=== PATIENT | male | born 1950 | race American Indian/Alaskan Native ===

== ENCOUNTER 2016-10-31 10:45 | Inpatient (IN) | payer BC ==
[2016-09-28 12:07] VITALS: BMI 29.0
--- NOTE | 2016-09-28 12:37 | PAT Medication Instructions ---
Service Date Sep 28, 2016. Current Home Medication List Amlodipine/Benazepril (Lotrel 5MG/10MG), 1 CAP PO DAILY Gabapentin (Neurontin), 300 MG PO QAM Naproxen (Aleve), 220 MG PO QAM Propranolol Hcl (Propranolol Hcl Er), 1 TAB PO DAILY Medication Instructions For Your Scheduled Surgery - Hold the following medications the morning of surgery: Naproxen (Aleve), 220 MG PO QAM (otherwise okay to continue per surgeon) Amlodipine/Benazepril (Lotrel 5MG/10MG), 1 CAP PO DAILY - Take the following medications the morning of surgery with a sip of water: Gabapentin (Neurontin), 300 MG PO QAM Propranolol Hcl (Propranolol Hcl Er), 1 TAB PO DAILY If you have any questions please call us at [phone] or [phone] or [phone]
[2016-09-28 13:16] LABS: BASO % 0.4 %; BASO ABS # 0.02 K/uL (0-0.2); COMPLETE YES; HEMATOCRIT 43.9 % (42-52); LYMPH % 28.8 %; LYMPH ABS # 1.59 K/uL (1.2-3.4); MEAN CELL VOLUME 84.6 fL (80-100); MEAN CORPUSCULAR HEMOGLOBIN 30.3 pg (25-34); MEAN CORPUSCULAR HGB CONC 35.8 g/dl (32-36); MEAN PLATELET VOLUME 11.7 fL (7.4-10.4); MONO % 9.2 %; NEUT % 59.6 %; PLATELET COUNT 160 K/uL (130-400); RED BLOOD COUNT 5.19 M/uL (4.7-6.1); WHITE BLOOD COUNT 5.53 K/uL (4.8-10.8)
[2016-09-28 13:34] LABS: BUN/CREATININE RATIO 19.8 (10-20); CALCIUM 8.8 mg/dl (8.5-10.1); CREATININE 0.89 mg/dl (0.60-1.40); POTASSIUM 3.9 mmol/L (3.5-5.1)
[2016-09-28 13:38] LABS: INR 1.1 (0.9-1.1); PROTHROMBIN TIME (PATIENT) 11.3 SECONDS (9.0-12.0)
--- NOTE | 2016-09-28 13:40 | DIAGNOSTIC IMAGING REPORT ---
CHEST PREADMISSION(PA/LAT) CLINICAL HISTORY: Preoperative chest COMPARISON STUDY: No previous studies for comparison. FINDINGS: The heart is the upper limits of normal in size. There is mild elevation right hemidiaphragm. There is mild right basilar atelectasis. There are few linear opacities the left lung base, also likely atelectatic.[ There is no failure. There are no pleural effusions. IMPRESSION: Mild elevation of the right hemidiaphragm. No evidence of failure. No evidence of focal pulmonary consolidation Electronically signed by: Kvng Acevedo M.D. 09/28/2016 1:38 PM Dictated Date/Time: 09/28/2016 1:38 PM
[2016-09-28 13:42] LABS: ESTIMATED AVERAGE GLUCOSE 117 mg/dl; HA1C FLAG Normal (Normal)
[2016-09-28 13:42] LABS: URINE APPEARANCE CLEAR (CLEAR); URINE BILIRUBIN NEG (NEG); URINE COLOR YELLOW; URINE NITRITE NEG (NEG); URINE PH 6.5 (4.5-7.5); UROBILINOGEN NEG (NEG); ZZUR CULT IF INDIC CLEAN CATCH NO
[2016-09-28 13:57] LABS: MANUAL MICROSCOPIC REQUIRED? NO; REVIEW REQ? NO
--- NOTE | 2016-10-30 20:19 | HISTORY & PHYSICAL EXAMINATION ---
DATE OF ADMISSION: 10/31/2016 CHIEF COMPLAINT: Chronic right knee pain. HISTORY OF PRESENT ILLNESS: This is a 66-year-old male patient of Dr. Elder, complaining of chronic right knee pain, longstanding, now progressively getting worse. The patient has been diagnosed with end-stage osteoarthritis per clinical and radiographic exams. The patient has failed conservative treatment including anti-inflammatories, intraarticular injections, physical therapy, and the use of a brace. The patient has increased pain with weightbearing activities and his pain does interfere with his activities of daily living. PAST MEDICAL HISTORY: Hypertension, upper back problems. SOCIAL HISTORY: Nonsmoker, nondrinker. SURGICAL HISTORY: Right and left knee surgery in the past. FAMILY HISTORY: Noncontributory. REVIEW OF SYSTEMS: The patient complains of chronic right knee pain. Otherwise, denies any shortness of breath, chest pain, nausea, vomiting, or any other joint complaints. MEDICATIONS: Include gabapentin 300 mg daily, propranolol 120 mg daily, amlodipine 5 mg/benazepril 10 mg daily. ALLERGIES: No known drug allergies. PHYSICAL EXAMINATION: GENERAL: Well-developed, well-nourished 66-year-old male in no acute distress. He is alert and oriented x3 and pleasant. HEENT: Normocephalic, atraumatic. Extraocular motions are intact. Pupils are equal and reactive to light. HEART: Regular rate and rhythm, no murmurs appreciated. LUNGS: Clear. ABDOMEN: Soft and nontender, bowel sounds are present. EXTREMITIES: Right knee reveals limited range of motion of 0-120 degrees. He has lateral joint line tenderness. He is stable with crepitation with passive range of motion, has 5/5 strength. NEUROLOGIC: Neurovascularly, he is intact in his right lower extremity. DIAGNOSES: Right knee end-stage osteoarthritis, hypertension, and back problems. PLAN: The patient was advised of his diagnosis. Indications, risks, benefits, and postop course have all been reviewed. The patient wishes to proceed with right total knee arthroplasty. Necessary consent forms, preoperative testing and clearances will be obtained.
[~2016-10-31] VITALS: Ht 172.7 cm; Wt 87.0 kg
[2016-10-31] VITALS (7 sets, daily range): BP systolic 93–145; BP diastolic 83–101; PULSE 67–84; TEMP 36.4–37.1; O2SAT 93–98; Ht 172.7 cm; Wt 87.0 kg
[~2016-10-31 10:45] MED LIST: ACETAMINOPHEN 500 MG TAB PO SCH; ATROPINE SULFATE 0.1 MG/ML 5ML SYR IV PRN; BUPIVACAINE 0.5 % 5 MG/1 ML PF 10ML VIAL ONE; CEFAZOLIN 2000 MG/60 ML D5W 60 ML IV SCH; CeleBREX 200 MG CAP PO SCH; DEXAMETHASONE 4 MG TAB PO SCH; EpHEDrine SULFATE INJ 50 MG/ML AMP IV PRN; FAMOTIDINE 20 MG TAB PO SCH; FENTANYL CITRATE INJ 50 MCG/1 ML 2 ML VIAL IV PRN; GABA-113 PO; GABAPENTIN 300 MG CAP PO SCH; LACTATED RINGER'S 1000ML 1,000 ML IV SCH; LACTATED RINGER'S 1000ML 500 ML IV ONE; LACTATED RINGER'S 1000ML IV SCH; LTR510 PO; METOCLOPRAMIDE HCL 10 MG TAB PO SCH; NAPR1TAB9 PO; ONDANSETRON INJ 2 MG/ML 2 ML VIAL IV PRN; PROP120C PO; ROPIVACAINE 5MG/ML 30 ML 150 MG, BUPIVACAINE/EPINEPHR 0.5% MPF 30 ML, KETOROLAC TROMETH... INFIL SCH; TRANEXAMIC ACID INJ 1,000 MG in SODIUM CHLORIDE 0.9% 100ML 100 ML IV SCH
[2016-10-31] MEDS ORDERED: FENTANYL CITRATE INJ 50 MCG/1 ML 2 ML VIAL ONE (10:49)
[2016-10-31] MEDS ORDERED: MIDAZOLAM HCL 1 MG/ML 2ML VIAL ONE ×2 (10:49)
--- NOTE | 2016-10-31 11:40 | History & Physical Bridge Note ---
H&P Re-Evaluation Bridge Note: I have examined the patient, reviewed the History & Physical and in the interval since the performance of the History & Physical I have noted the following changes of clinical significance: No changes noted
[2016-10-31] MEDS ORDERED: POVIDONE-IODINE OP SOLN 30 ML BTL ONE (12:12)
[2016-10-31] MEDS ORDERED: BACITRACIN 50000 UNIT VIAL ONE (12:12)
[2016-10-31] MEDS ORDERED: ORTHO JOINT ANESTHETIC ONE (12:12)
[2016-10-31] MEDS ORDERED: PROPOFOL IV EMULSION 10 MG/ML 20 ML VIAL IV ONE (13:38)
--- NOTE | 2016-10-31 14:44 | [facility] Operative Report ---
Operative Report Operative Date Oct 31, 2016. Pre-Operative Diagnosis Right Knee Degenerative Joint Disease Post-Operative Diagnosis same Procedure(s) Performed right total knee replacement Surgeon Dr. Dominique Underliner Surgeon(s) Rubio Mcmahon PA-C Estimated Blood Loss 5 ml Findings valgus knee grade 4 bone loss lateral femoral condyle Specimens A. Right Knee Bone and Tissue Drains 2 hemovac Anesthesia spinal orthomix regional block Complication(s) None Disposition Recovery Room / PACU Indications end stage djd I attest to the content of the Intraoperative Record and any orders documented therein. Any exceptions are noted below.
[2016-10-31] MEDS ORDERED: MoRPHine SULFATE 2 MG/ML CARP IV PRN (15:00)
[2016-10-31] MEDS ORDERED: SOD PHOSPHATE/SOD BIPHOSPHATE ENEMA 132 ML BTL PR PRN (15:00)
[2016-10-31] MEDS ORDERED: OXYCODONE HCL IR 5 MG TAB (IMMEDIATE RELEASE) PO PRN (15:00)
[2016-10-31] MEDS ORDERED: TRAMADOL HCL 50 MG TAB PO PRN (15:00)
[2016-10-31] MEDS ORDERED: ZOLPIDEM TARTRATE 5 MG TAB PO PRN (15:00)
[2016-10-31] MEDS ORDERED: ONDANSETRON INJ 2 MG/ML 2 ML VIAL IV PRN (15:00)
[2016-10-31] MEDS ORDERED: MAGNESIUM HYDROXIDE SUSP 30 ML UDC PO PRN (15:00)
[2016-10-31] MEDS ORDERED: BISACODYL 10 MG SUPP PR PRN (15:00)
[2016-10-31] MEDS ORDERED: MoRPHine SULFATE 4 MG/ML 1 ML CARP\\VIAL IV PRN (15:15)
--- NOTE | 2016-10-31 15:19 | DIAGNOSTIC IMAGING REPORT ---
TWO VIEWS RIGHT KNEE CLINICAL HISTORY: Postoperative examination. FINDINGS: AP and crosstable lateral portable views of the right knee are obtained. A right knee arthroplasty is in near anatomic alignment. There has been undersurface remodeling of the patella. No acute fracture is seen. There are expected postoperative changes around the knee including skin clips, a surgical drain, soft tissue edema, and subcutaneous gas. IMPRESSION: Expected postoperative changes status post right knee arthroplasty. No acute fracture is seen. Electronically signed by: Rolly Jeffries M.D. 10/31/2016 3:16 PM Dictated Date/Time: 10/31/2016 3:16 PM
--- NOTE | 2016-10-31 15:40 | Anesthesiology Progress Note ---
Anesthesia Post Op Note Date & Time Oct 31, 2016 at 15:39 Vital Signs Pain Intensity: 0 Vital Signs Past 12 Hours Date Time Temp Pulse Resp B/P Pulse Ox O2 Delivery O2 Flow Rate FiO2 10/31/16 15:37 82 16 10/31/16 15:37 82 16 100 10/31/16 15:36 103/79 10/31/16 15:32 79 16 10/31/16 15:32 78 16 100 10/31/16 15:31 119/80 10/31/16 15:28 36.5 10/31/16 15:27 84 16 10/31/16 15:27 88 16 97 10/31/16 15:26 82 13 99 10/31/16 15:26 83 13 10/31/16 15:25 121/82 10/31/16 15:21 82 13 10/31/16 15:21 82 13 99 10/31/16 15:20 118/82 10/31/16 15:16 85 20 100 10/31/16 15:16 86 20 10/31/16 15:15 84 17 117/93 100 10/31/16 15:15 86 17 10/31/16 15:10 85 13 10/31/16 15:10 97 13 129/80 100 10/31/16 15:05 83 17 10/31/16 15:05 83 17 116/85 100 10/31/16 15:01 113/81 10/31/16 15:00 86 16 10/31/16 15:00 87 16 96 10/31/16 14:55 37.2 78 16 100/77 100 Nasal Cannula 2 10/31/16 14:55 86 18 10/31/16 14:55 110 18 100/77 98 10/31/16 11:14 36.9 67 18 145/101 96 Room Air Notes Mental Status: alert / awake / arousable, participated in evaluation Pt Amnestic to Procedure: Yes Nausea / Vomiting: adequately controlled Pain: adequately controlled Airway Patency, RR, SpO2: stable & adequate BP & HR: stable & adequate Hydration State: stable & adequate Neuraxial Anesthesia: was administered, sensory block is resolving Anesthetic Complications: no major complications apparent
--- NOTE | 2016-10-31 16:49 | OPERATIVE REPORT ---
DATE OF OPERATION: 10/31/2016 INDICATION FOR PROCEDURE: The patient is a 66-year-old male with progressive osteoarthritis in his right knee. He has had long-term osteoarthritis and he is [id number] in his lateral compartment with some bone loss and now presents for knee replacement. PREOPERATIVE DIAGNOSIS: End-stage osteoarthritis, right knee. POSTOPERATIVE DIAGNOSIS: Same. PROCEDURE: Right total knee arthroplasty. SURGEON: Dr. Dominique. CHUCK SPLITTER: Rubio Mcmahon PA-C. ANESTHESIA: Spinal sedation, regional block and Orthomix. OPERATIVE PROCEDURE: The patient was taken to the operating room and anesthetized under anesthesia as dictated. She was placed supine on the operating room table. Pneumatic tourniquet was placed on his right upper thigh. Exam demonstrated a thin leg, about 5-10 degree flexion contracture, further flexion to 100 degrees. He has a valgus knee [id number] crepitation. No instability. His right lower extremity was prepped and draped with ChloraPrep. The leg was elevated, exsanguinated with Esmarch bandage. Pneumatic tourniquet was raised to 300 mmHg. Anterior incision made across the right knee. Skin incised sharply. Subcutaneous flaps were elevated. The patient had some prepatellar bursitis that was resected. The incision was made through medial retinaculum and extended up in the mid of the quadriceps tendon extending down to the medial tibial tubercle. Intra-articular findings demonstrated that he had bone loss in the lateral femoral condyle, eburnated bone in the lateral compartment and chronic lateral meniscus tear, intact ACL and intact medial meniscus. He had large patellar osteophytes with a very large superior patellar osteophyte extending up into the quad tendon. I used the Stapleton \T\ Nephew Journey 2.0, total knee arthroplasty system using Visionaire MRI templating. Femur sized for a 5, tibia for 6 in the preoperative evaluation. The knee joint was exposed by excising the infrapatellar fat pad, excised the meniscal remnants, excising the cruciate ligaments and releasing the lateral synovial bands, and excising the fat pad over the anterior femur for placement of the component in that area. The femur was exposed. The custom femoral cutting block was pinned in position, the distal femoral cut was made, and then we went ahead and extended the knee and addressed the patella first. A did a subperiosteal peel release around the patella, excised the very large osteophytes with a rongeur. Then we measured the width of the patella, patella width was reproduced using a freehand cut technique and a 35 patella component. The drill holes for the pegs were placed and the excess lateral facet was beveled off to prevent any impingement. Then we were able to get better retraction of soft tissues to expose the femur more clearly. Then we placed the 5-1 cutting block for the size 5 femur. The anterior, posterior and chamfer cuts were made. Then the tibia was subluxed and the custom tibial cutting block was placed and the proximal tibial cut was made. We used the lamina processing rep to assess ligamentous balance and we did releases posterolateral, anterolateral some of the IT band to balance the ligaments which were balanced in extension and flexion well. At this time, the tibia was reexposed. We excised some osteophytes and felt that 5 tibial component would better fit the patient. The 5 tibial trial was externally rotated in line with the tibial tubercle, pinned in position and then the punch for the stem was used. Then, the 5 femoral trial was inserted, centered, and the notch cutting devices were used and the collet was placed and 12 poly insert gave balanced ligaments through flexion, extension through full range of motion, patella tracked centrally. The trial components were removed. Orthomix was injected per protocol. The knee was copiously irrigated with pulsatile lavage antibiotic solution with bacitracin. Then, the final components were cemented with Simplex cement. Final components were the 5 Oxinium posterior stabilized Stapleton \T\ Nephew Journey 2.0 right femur, the 5 tibial primary baseplate, the 12 poly posterior stabilized insert and 35 patella. The knee was kept in extension while the cement cured, then we did a Betadine soak per protocol at this time. Then the knee was then copiously irrigated with pulsatile lavage antibiotic solution and bacitracin. Two drains were brought out laterally and connected to a Hemovac. The quadriceps tendon and medial retinaculum were closed with interrupted [id number] #1 Vicryl sutures. Subcutaneous tissue closed with interrupted 2-0 Vicryl and skin was closed with mary. A sterile dressing applied. The patient tolerated the procedure well. Rubio Mcmahon PA-C was my assistant program manager. He functioned as assistant program manager for the entire procedure. He assisted in patient positioning, prepping, draping, leg positioning, soft tissue retraction, instrument management during the procedure and he performed the fascial, subcutaneous and skin closure and will participate in the postoperative care of the patient. I attest to the content of the Intraoperative Record and any orders documented therein. Any exceptio ns are noted below.
[2016-10-31] MEDS: D5W AND 1/2NSS + 20MEQ KCL 1,000 ML IV SCH (17:34)
--- NOTE | 2016-10-31 19:47 | Medical Consult ---
Consultation Date of Consultation: Oct 31, 2016. Attending Physician: Flaco Dominique M.D. Reason for Consultation: Medical Management History of Present Illness 66 y/o M s/p R TKA earlier today. He is doing well post-op. No pain at all at this point. Ate without issue. No chest pain or SOB. Pt denies fever, abd pain, n/v/c/d, LE pain or swelling. ROS as noted above, otherwise neg. Past Medical/Surgical History HTN L UE tremor Social History Smoking Status: Never Smoker Alcohol Use: none Allergies Coded Allergies: No Known Allergies (Unverified , 10/31/16) Current Inpatient Medications Current Inpatient Medications Medications (Trade) Dose Ordered Sig/Priyank Route Start Time Stop Time Status Last Admin Dose Admin Gabapentin (Neurontin Cap) 300 mg QAM PO 11/01/16 09:00 12/01/16 08:59 Amlodipine Besylate (Norvasc Tab) 5 mg QAM PO 11/01/16 09:00 12/01/16 08:59 Propranolol HCl 120 mg 120 mg DAILY PO 11/01/16 09:00 12/01/16 08:59 Potassium Chloride/Dextrose/ Sod Cl 1,000 ml @ 100 mls/hr Q10H IV 10/31/16 17:00 11/01/16 16:59 10/31/16 17:34 100 MLS/HR Cefazolin Sodium/ Dextrose (Ancef Iv/D5 50ml) 60 ml @ 100 mls/hr Q8 IV 10/31/16 22:00 11/01/16 06:35 Celecoxib (CeleBREX CAP) 200 mg BID PO 10/31/16 21:00 11/30/16 20:59 Oxycodone HCl (Roxicodone Immediate Rel Tab) 1 TABLET FOR PAIN RATING... Q4H PRN PO 10/31/16 15:00 11/14/16 14:59 Oxycodone HCl (Oxycontin Tab) 10 mg Q12 PO 10/31/16 21:00 11/14/16 20:59 Morphine Sulfate (MoRPHine SULFATE INJ) 2 mg Q2H PRN IV 10/31/16 15:00 11/14/16 14:59 Acetaminophen (Tylenol Tab) 1,000 mg Q8 PO 10/31/16 22:00 11/30/16 21:59 Magnesium Hydroxide (Milk Of Magnesia Susp) 30 ml Q6H PRN PO 10/31/16 15:00 11/30/16 14:59 Bisacodyl (Dulcolax Supp) 10 mg DAILY PRN SD 10/31/16 15:00 11/30/16 14:59 Sodium Biphosphate/ Sodium Phosphate (Fleet Enema) 132 ml DAILY PRN SD 10/31/16 15:00 11/30/16 14:59 Docusate Sodium (coLACE CAP) 100 mg BID PO 10/31/16 21:00 11/30/16 20:59 Diphenhydramine HCl (Benadryl Cap) 25 mg Q8H PRN PO 10/31/16 15:00 11/30/16 14:59 Zolpidem Tartrate (Ambien Tab) 5 mg HSZ PRN PO 10/31/16 15:00 11/30/16 14:59 Multivitamins (Multivitamin Tab) 1 tab QAM PO 11/01/16 09:00 12/01/16 08:59 Ondansetron HCl (Zofran Inj) 4 mg Q6H PRN IV 10/31/16 15:00 11/30/16 14:59 Pantoprazole Sodium (Protonix Tab) 40 mg QAM PO 11/01/16 09:00 12/01/16 08:59 Tramadol HCl (Ultram Tab) 1 tablet for pain rating... Q4H PRN PO 10/31/16 15:00 11/30/16 14:59 Aspirin (Ecotrin Tab) 81 mg BID PO 10/31/16 21:00 11/30/16 20:59 Morphine Sulfate (MoRPHine SULFATE INJ) 4 mg Q2H PRN IV 10/31/16 15:15 11/14/16 15:14 Benazepril HCl (Lotensin Tab) 10 mg QAM PO 11/01/16 09:00 12/01/16 08:59 Physical Exam Date Time Temp Pulse Resp B/P Pulse Ox O2 Delivery O2 Flow Rate FiO2 10/31/16 17:25 36.4 78 19 93/ 97 Nasal Cannula 2.0 10/31/16 16:52 36.5 77 18 144/100 97 Nasal Cannula 2.0 10/31/16 16:06 80 15 10/31/16 16:06 79 15 116/87 98 10/31/16 16:01 87 16 10/31/16 16:01 88 16 98 10/31/16 16:00 121/84 10/31/16 15:56 76 16 98 10/31/16 15:56 78 16 10/31/16 15:55 118/79 10/31/16 15:51 79 13 98 10/31/16 15:51 79 13 10/31/16 15:50 121/81 10/31/16 15:48 86 20 97 10/31/16 15:48 87 20 10/31/16 15:45 133/82 10/31/16 15:43 81 20 99 10/31/16 15:43 81 20 10/31/16 15:40 120/93 10/31/16 15:38 86 15 99 10/31/16 15:38 85 15 10/31/16 15:37 82 16 10/31/16 15:37 82 16 100 10/31/16 15:36 103/79 10/31/16 15:32 79 16 10/31/16 15:32 78 16 100 10/31/16 15:31 119/80 10/31/16 15:28 36.5 10/31/16 15:27 84 16 10/31/16 15:27 88 16 97 10/31/16 15:26 82 13 99 10/31/16 15:26 83 13 10/31/16 15:25 121/82 10/31/16 15:21 82 13 10/31/16 15:21 82 13 99 10/31/16 15:20 118/82 10/31/16 15:16 85 20 100 10/31/16 15:16 86 20 10/31/16 15:15 84 17 117/93 100 10/31/16 15:15 86 17 10/31/16 15:10 85 13 10/31/16 15:10 97 13 129/80 100 10/31/16 15:05 83 17 10/31/16 15:05 83 17 116/85 100 10/31/16 15:01 113/81 10/31/16 15:00 86 16 10/31/16 15:00 87 16 96 10/31/16 14:55 37.2 78 16 100/77 100 Nasal Cannula 2 10/31/16 14:55 86 18 10/31/16 14:55 110 18 100/77 98 10/31/16 11:14 36.9 67 18 145/101 96 Room Air General Appearance: WD/WN, no apparent distress Respiratory/Chest: normal breath sounds, no respiratory distress Cardiovascular: regular rate, rhythm, no edema Abdomen/GI: non tender, soft Extremities/Musculoskelatal: no calf tenderness, no pedal edema Neurologic/Psych: alert, normal mood/affect, oriented x 3 Skin: normal color, warm/dry Laboratory Results 66 y/o M who was admitted on 10/31 s/p R TKA. R TKA: as per ortho HTN: stable, continue home meds LUE tremor: continue home meds Elevated A1c: mild at 5.7, pt states no prior hx of issues Advised f/u with PCP for recheck in the next 3-6 months
[2016-10-31] MEDS: OXYCODONE HCL 10 MG TABCR (OXYCONTIN) PO SCH (21:01)
[2016-10-31] MEDS: ASPIRIN 81 MG ECTAB PO SCH (21:02)
[2016-10-31] MEDS: DOCUSATE SODIUM 100 MG CAP PO SCH (21:02)
[2016-10-31] MEDS: CeleBREX 200 MG CAP PO SCH (21:02)
[2016-10-31] MEDS: CEFAZOLIN IV 2,000 MG in DEXTROSE 5% 50ML 50 ML IV SCH (21:44)
[2016-10-31] MEDS: ACETAMINOPHEN 500 MG TAB PO SCH (21:45)
[2016-11-01 03:15] VITALS: BP 156/84; PULSE 76; TEMP 36.4; O2SAT 95
[2016-11-01] MEDS: D5W AND 1/2NSS + 20MEQ KCL 1,000 ML IV SCH ×2 (04:00→13:00)
[2016-11-01] MEDS: ACETAMINOPHEN 500 MG TAB PO SCH ×3 (05:20→21:52)
[2016-11-01] MEDS: CEFAZOLIN IV 2,000 MG in DEXTROSE 5% 50ML 50 ML IV SCH (05:20)
[2016-11-01 06:26] LABS: HEMATOCRIT 40.2 % (42-52); MEAN CELL VOLUME 84.3 fL (80-100); MEAN CORPUSCULAR HEMOGLOBIN 29.6 pg (25-34); MEAN CORPUSCULAR HGB CONC 35.1 g/dl (32-36); MEAN PLATELET VOLUME 11.6 fL (7.4-10.4); PLATELET COUNT 170 K/uL (130-400); RED BLOOD COUNT 4.77 M/uL (4.7-6.1); WHITE BLOOD COUNT 10.36 K/uL (4.8-10.8)
[2016-11-01 06:54] LABS: BUN/CREATININE RATIO 13.3 (10-20); CALCIUM 8.6 mg/dl (8.5-10.1); CREATININE 1.1 mg/dl (0.60-1.40); POTASSIUM 4.1 mmol/L (3.5-5.1)
--- NOTE | 2016-11-01 07:37 | Anesthesiology Progress Note ---
Anesthesia Post Op Note Date & Time Nov 01, 2016 at 07:36 Vital Signs Pain Intensity: 0.0 Vital Signs Past 12 Hours Date Time Temp Pulse Resp B/P Pulse Ox O2 Delivery O2 Flow Rate FiO2 11/01/16 07:10 Room Air 11/01/16 03:15 36.4 76 16 156/84 95 Room Air 10/31/16 23:55 Room Air 10/31/16 23:00 36.4 81 18 138/91 95 Room Air Notes Mental Status: alert / awake / arousable, participated in evaluation Pt Amnestic to Procedure: Yes Nausea / Vomiting: adequately controlled Pain: adequately controlled Airway Patency, RR, SpO2: stable & adequate BP & HR: stable & adequate Hydration State: stable & adequate Neuraxial Anesthesia: was administered, sensory block resolved Anesthetic Complications: no major complications apparent
[2016-11-01 08:14] VITALS: BP 159/96; PULSE 73; TEMP 36.4; O2SAT 97
--- NOTE | 2016-11-01 08:26 | Orthopedic Progress Note ---
Orthopedic Progress Note Date of Service Nov 01, 2016. Subjective Post OP Day: 1 Reports: feeling well, pain controlled w PO medications, Denies: SOB, calf pain , chest pain, complaints, light headedness, nausea / vomiting Objective calves soft nontender, N/V intact, capillary refill less than 2 sec., dressing C /D/I, A&O x3, toes mobile Date Time Temp Pulse Resp B/P Pulse Ox O2 Delivery O2 Flow Rate FiO2 11/01/16 08:14 36.4 73 16 159/96 97 Room Air 11/01/16 07:10 Room Air 11/01/16 03:15 36.4 76 16 156/84 95 Room Air 10/31/16 23:55 Room Air 10/31/16 23:00 36.4 81 18 138/91 95 Room Air 10/31/16 19:20 36.4 83 18 129/85 94 Room Air 10/31/16 18:20 36.4 80 18 138/95 98 Nasal Cannula 2.0 10/31/16 17:25 36.4 78 19 93/ 97 Nasal Cannula 2.0 10/31/16 16:52 36.5 77 18 144/100 97 Nasal Cannula 2.0 10/31/16 16:30 93 Nasal Cannula 2.0 10/31/16 16:30 93 Nasal Cannula 2.0 10/31/16 16:30 37.1 84 18 116/83 93 Nasal Cannula 2.0 10/31/16 16:06 80 15 10/31/16 16:06 79 15 116/87 98 10/31/16 16:01 87 16 10/31/16 16:01 88 16 98 10/31/16 16:00 121/84 10/31/16 15:56 76 16 98 10/31/16 15:56 78 16 10/31/16 15:55 118/79 10/31/16 15:51 79 13 98 10/31/16 15:51 79 13 10/31/16 15:50 121/81 10/31/16 15:48 86 20 97 10/31/16 15:48 87 20 10/31/16 15:45 133/82 10/31/16 15:43 81 20 99 10/31/16 15:43 81 20 10/31/16 15:40 120/93 10/31/16 15:38 86 15 99 10/31/16 15:38 85 15 10/31/16 15:37 82 16 10/31/16 15:37 82 16 100 10/31/16 15:36 103/79 10/31/16 15:32 79 16 10/31/16 15:32 78 16 100 10/31/16 15:31 119/80 10/31/16 15:28 36.5 10/31/16 15:27 84 16 10/31/16 15:27 88 16 97 10/31/16 15:26 82 13 99 10/31/16 15:26 83 13 10/31/16 15:25 121/82 10/31/16 15:21 82 13 10/31/16 15:21 82 13 99 10/31/16 15:20 118/82 10/31/16 15:16 85 20 100 10/31/16 15:16 86 20 10/31/16 15:15 84 17 117/93 100 10/31/16 15:15 86 17 10/31/16 15:10 85 13 10/31/16 15:10 97 13 129/80 100 10/31/16 15:05 83 17 10/31/16 15:05 83 17 116/85 100 10/31/16 15:01 113/81 10/31/16 15:00 86 16 10/31/16 15:00 87 16 96 10/31/16 14:55 37.2 78 16 100/77 100 Nasal Cannula 2 10/31/16 14:55 86 18 10/31/16 14:55 110 18 100/77 98 10/31/16 11:14 36.9 67 18 145/101 96 Room Air Laboratory Results 24 Hours: Test 11/01/16 05:47 Hematocrit 40.2 % Hemoglobin 14.1 g/dL Assessment & Plan Assessment: POD #1, Right TKA Plan: PT/ OT DVT proph- ASA D/C planning- Home w [facility] medicine input Inhouse Planning Pain Management: Celebrex, Oxycontin, Morphine, PO Tylenol, Oxy IR DVT Prophylaxis: TEDs, SCDs, ASA Discharge Planning Discharge Planning: home with home health Pain Management: Celebrex, Oxycontin, PO Tylenol, Oxy IR DVT Prophylaxis: TEDs, ASA Therapy: Physical Therapy, Occupational Therapy
[2016-11-01] MEDS: GABAPENTIN 300 MG CAP PO SCH (08:36)
[2016-11-01] MEDS: OXYCODONE HCL 10 MG TABCR (OXYCONTIN) PO SCH ×2 (08:36→20:50)
[2016-11-01] MEDS: MULTIVITAMIN TAB PO SCH (08:36)
[2016-11-01] MEDS: BENAZEPRIL HCL 10 MG TAB PO SCH (08:37)
[2016-11-01] MEDS: AMLODIPINE BESYLATE 5 MG TAB PO SCH (08:37)
[2016-11-01] MEDS: PROPRANOLOL HCL 60 MG LA CAP PO SCH (08:38)
[2016-11-01] MEDS: CeleBREX 200 MG CAP PO SCH ×2 (08:39→20:52)
[2016-11-01] MEDS: PANTOprazole SOD 40 MG TAB PO SCH (08:39)
[2016-11-01] MEDS: ASPIRIN 81 MG ECTAB PO SCH ×2 (08:39→20:51)
[2016-11-01] MEDS: DOCUSATE SODIUM 100 MG CAP PO SCH ×2 (08:39→20:51)
--- NOTE | 2016-11-01 09:58 | Progress Note ---
Subjective Date of Service: Nov 01, 2016. Subjective Pt evaluation today including: conversation w/ patient, physical exam, review of studies, review of inpatient medication list Feeling well, not requiring any pain medications. AMbulating without pain/gait dysfunction. No chest pain , no sob. Good appetite. No urinary or abd symptoms. +BM this morning Review of Systems All Other Systems: Reviewed and Negative Medications Acetaminophen (Tylenol Tab) 1,000 mg Q8 PO Last administered on 11/01/16 05:20 ; Admin Dose 1,000 MG; Start 10/31/16 at 22:00; Stop 11/30/16 at 21:59 Amlodipine Besylate (Norvasc Tab) 5 mg QAM PO Last administered on 11/01/16 08: 37; Admin Dose 5 MG; Start 11/01/16 at 09:00; Stop 12/01/16 at 08:59 Aspirin (Ecotrin Tab) 81 mg BID PO Last administered on 11/01/16 08:39; Admin Dose 81 MG; Start 10/31/16 at 21:00; Stop 11/30/16 at 20:59 Benazepril HCl (Lotensin Tab) 10 mg QAM PO Last administered on 11/01/16 08:37 ; Admin Dose 10 MG; Start 11/01/16 at 09:00; Stop 12/01/16 at 08:59 Bisacodyl (Dulcolax Supp) 10 mg DAILY PRN MD; Start 10/31/16 at 15:00; Stop at 14:59 Celecoxib (CeleBREX CAP) 200 mg BID PO Last administered on 11/01/16 08:39; Admin Dose 200 MG; Start 10/31/16 at 21:00; Stop 11/30/16 at 20:59 Diphenhydramine HCl (Benadryl Cap) 25 mg Q8H PRN PO; Start 10/31/16 at 15:00; Stop 11/30/16 at 14:59 Docusate Sodium (coLACE CAP) 100 mg BID PO Last administered on 11/01/16 08:39 ; Admin Dose 100 MG; Start 10/31/16 at 21:00; Stop 11/30/16 at 20:59 Gabapentin (Neurontin Cap) 300 mg QAM PO Last administered on 11/01/16 08:36; Admin Dose 300 MG; Start 11/01/16 at 09:00; Stop 12/01/16 at 08:59 Magnesium Hydroxide (Milk Of Magnesia Susp) 30 ml Q6H PRN PO; Start 10/31/16 at 15:00; Stop 11/30/16 at 14:59 Morphine Sulfate (MoRPHine SULFATE INJ) 2 mg Q2H PRN IV; Start 10/31/16 at 15: 00; Stop 11/14/16 at 14:59 Morphine Sulfate (MoRPHine SULFATE INJ) 4 mg Q2H PRN IV; Start 10/31/16 at 15: 15; Stop 11/14/16 at 15:14 Multivitamins (Multivitamin Tab) 1 tab QAM PO Last administered on 11/01/16 08: 36; Admin Dose 1 TAB; Start 11/01/16 at 09:00; Stop 12/01/16 at 08:59 Ondansetron HCl (Zofran Inj) 4 mg Q6H PRN IV; Start 10/31/16 at 15:00; Stop at 14:59 Oxycodone HCl (Oxycontin Tab) 10 mg Q12 PO Last administered on 11/01/16 08:36 ; Admin Dose 10 MG; Start 10/31/16 at 21:00; Stop 11/14/16 at 20:59 Oxycodone HCl (Roxicodone Immediate Rel Tab) 1 TABLET FOR PAIN RATING... Q4H PRN PO; Start 10/31/16 at 15:00; Stop 11/14/16 at 14:59 Pantoprazole Sodium (Protonix Tab) 40 mg QAM PO Last administered on 11/01/16 08:39; Admin Dose 40 MG; Start 11/01/16 at 09:00; Stop 12/01/16 at 08:59 Potassium Chloride/Dextrose/ Sod Cl (D5W And 1/2nss + 20meq KCl) 1,000 ml @ 100 mls/hr Q10H IV Last administered on 11/01/16 04:00; Admin Dose 100 MLS/HR; Start 10/31/16 at 17:00; Stop 11/01/16 at 16:59 Propranolol HCl 120 mg 120 mg DAILY PO Last administered on 11/01/16 08:38; Admin Dose 120 MG; Start 11/01/16 at 09:00; Stop 12/01/16 at 08:59 Sodium Biphosphate/ Sodium Phosphate (Fleet Enema) 132 ml DAILY PRN MD; Start 10/31/16 at 15:00; Stop 11/30/16 at 14:59 Tramadol HCl (Ultram Tab) 1 tablet for pain rating... Q4H PRN PO; Start at 15:00; Stop 11/30/16 at 14:59 Zolpidem Tartrate (Ambien Tab) 5 mg HSZ PRN PO; Start 10/31/16 at 15:00; Stop 11/30/16 at 14:59 Objective Vital Signs Date Time Temp Pulse Resp B/P Pulse Ox O2 Delivery O2 Flow Rate FiO2 11/01/16 08:14 36.4 73 16 159/96 97 Room Air 11/01/16 07:10 Room Air 11/01/16 03:15 36.4 76 16 156/84 95 Room Air 10/31/16 23:55 Room Air 10/31/16 23:00 36.4 81 18 138/91 95 Room Air 10/31/16 19:20 36.4 83 18 129/85 94 Room Air 10/31/16 18:20 36.4 80 18 138/95 98 Nasal Cannula 2.0 10/31/16 17:25 36.4 78 19 93/ 97 Nasal Cannula 2.0 10/31/16 16:52 36.5 77 18 144/100 97 Nasal Cannula 2.0 10/31/16 16:30 93 Nasal Cannula 2.0 10/31/16 16:30 93 Nasal Cannula 2.0 10/31/16 16:30 37.1 84 18 116/83 93 Nasal Cannula 2.0 10/31/16 16:06 80 15 10/31/16 16:06 79 15 116/87 98 10/31/16 16:01 87 16 10/31/16 16:01 88 16 98 10/31/16 16:00 121/84 10/31/16 15:56 76 16 98 10/31/16 15:56 78 16 10/31/16 15:55 118/79 10/31/16 15:51 79 13 98 10/31/16 15:51 79 13 10/31/16 15:50 121/81 10/31/16 15:48 86 20 97 10/31/16 15:48 87 20 10/31/16 15:45 133/82 10/31/16 15:43 81 20 99 10/31/16 15:43 81 20 10/31/16 15:40 120/93 10/31/16 15:38 86 15 99 10/31/16 15:38 85 15 10/31/16 15:37 82 16 10/31/16 15:37 82 16 100 10/31/16 15:36 103/79 10/31/16 15:32 79 16 10/31/16 15:32 78 16 100 10/31/16 15:31 119/80 10/31/16 15:28 36.5 10/31/16 15:27 84 16 10/31/16 15:27 88 16 97 10/31/16 15:26 82 13 99 10/31/16 15:26 83 13 10/31/16 15:25 121/82 10/31/16 15:21 82 13 10/31/16 15:21 82 13 99 10/31/16 15:20 118/82 10/31/16 15:16 85 20 100 10/31/16 15:16 86 20 10/31/16 15:15 84 17 117/93 100 10/31/16 15:15 86 17 10/31/16 15:10 85 13 10/31/16 15:10 97 13 129/80 100 10/31/16 15:05 83 17 10/31/16 15:05 83 17 116/85 100 10/31/16 15:01 113/81 10/31/16 15:00 86 16 10/31/16 15:00 87 16 96 10/31/16 14:55 37.2 78 16 100/77 100 Nasal Cannula 2 10/31/16 14:55 86 18 10/31/16 14:55 110 18 100/77 98 10/31/16 11:14 36.9 67 18 145/101 96 Room Air Physical Exam Comments: nad, aox3, anicteric s1 s2 rrr, no murmurs appreciated ctab no w/r/r abd soft nt/nd +BS no LE edema RLE dressed, non-tender Laboratory Results Last 24 Hours Test 11/01/16 05:47 White Blood Count 10.36 K/uL Red Blood Count 4.77 M/uL Hemoglobin 14.1 g/dL Hematocrit 40.2 % Mean Corpuscular Volume 84.3 fL Mean Corpuscular Hemoglobin 29.6 pg Mean Corpuscular Hemoglobin Concent 35.1 g/dl RDW Standard Deviation 40.2 fL RDW Coefficient of Variation 13.1 % Platelet Count 170 K/uL Mean Platelet Volume 11.6 fL Sodium Level 140 mmol/L Potassium Level 4.1 mmol/L Chloride Level 108 mmol/L Carbon Dioxide Level 26 mmol/L Anion Gap 6.0 mmol/L Blood Urea Nitrogen 15 mg/dl Creatinine 1.10 mg/dl Est Creatinine Clear Calc Drug Dose 72.8 ml/min Estimated GFR () 81.8 Estimated GFR (Non- 70.6 BUN/Creatinine Ratio 13.3 Random Glucose 158 mg/dl Calcium Level 8.6 mg/dl Hepatitis C Antibody Screen NEG Assessment and Plan 1. s/p R TKA - POD#1 - pain regimen adequate - PT/OT at home 2. HTN - acceptable on amlodipine 3. Essential tremors - cont propranolol 4. Hyperglycemia - non-diabetic - monitor - will need screening for DM as outpatient 5. Dispo: per primary team
[2016-11-01 12:10] VITALS: BP 120/72; PULSE 72; TEMP 36.8; O2SAT 98
[2016-11-01 15:30] VITALS: BP 128/83; PULSE 59; TEMP 36.9; O2SAT 97
[2016-11-01 23:08] VITALS: BP 149/91; PULSE 51; TEMP 36.5; O2SAT 95
[2016-11-02] MEDS: ACETAMINOPHEN 500 MG TAB PO SCH (05:50)
[2016-11-02 06:37] LABS: HEMATOCRIT 36.7 % (42-52); MEAN CELL VOLUME 85.7 fL (80-100); MEAN CORPUSCULAR HEMOGLOBIN 29.9 pg (25-34); MEAN CORPUSCULAR HGB CONC 34.9 g/dl (32-36); MEAN PLATELET VOLUME 11.3 fL (7.4-10.4); PLATELET COUNT 160 K/uL (130-400); RED BLOOD COUNT 4.28 M/uL (4.7-6.1); WHITE BLOOD COUNT 9.62 K/uL (4.8-10.8)
[2016-11-02 06:56] VITALS: BP 149/97; PULSE 56; TEMP 36.5; O2SAT 97
[2016-11-02 07:11] LABS: BUN/CREATININE RATIO 20.4 (10-20); CALCIUM 8.7 mg/dl (8.5-10.1); POTASSIUM 4.5 mmol/L (3.5-5.1)
--- NOTE | 2016-11-02 08:27 | Orthopedic Progress Note ---
Orthopedic Progress Note Date of Service Nov 02, 2016. Subjective Post OP Day: 2 Reports: feeling well, pain controlled w PO medications, Denies: SOB, calf pain , chest pain, complaints, light headedness, nausea / vomiting Objective calves soft nontender, N/V intact, capillary refill less than 2 sec., dressing C /D/I, A&O x3, toes mobile silverlon in tact but cracked at top Date Time Temp Pulse Resp B/P Pulse Ox O2 Delivery O2 Flow Rate FiO2 11/02/16 06:56 36.5 56 17 149/97 97 Room Air 11/01/16 23:08 36.5 51 16 149/91 95 Room Air 11/01/16 19:50 Room Air 11/01/16 15:30 36.9 59 16 128/83 97 Room Air 11/01/16 12:10 36.8 72 22 120/72 98 Room Air Laboratory Results 24 Hours: Test 11/02/16 06:12 Hematocrit 36.7 % Hemoglobin 12.8 g/dL Assessment & Plan Assessment: POD #2, Right TKA Plan: PT/ OT DVT proph- ASA D/C planning- Home w HH today Appreciate medicine input Inhouse Planning Pain Management: Celebrex, Oxycontin, Morphine, PO Tylenol, Oxy IR DVT Prophylaxis: TEDs, SCDs, ASA Discharge Planning Discharge Planning: home with home health Pain Management: Celebrex, Oxycontin, PO Tylenol, Oxy IR DVT Prophylaxis: TEDs, ASA Therapy: Physical Therapy, Occupational Therapy
[2016-11-02] MEDS ORDERED: OXYSR10 PO (08:31)
[2016-11-02] MEDS ORDERED: RXC5 PO (08:31)
[2016-11-02] MEDS ORDERED: ACET-1138 PO (08:31)
[2016-11-02] MEDS ORDERED: ASPEC81 PO (08:31)
[2016-11-02] MEDS ORDERED: ONDA8TAB12 PO (08:31)
[2016-11-02] MEDS ORDERED: CLB200 PO (08:31)
--- NOTE | 2016-11-02 08:32 | Discharge Instructions ---
Discharge Instructions Date of Service Nov 02, 2016. Admission Reason for Admission: Right Knee Degenerative Joint Disease Discharge Discharge Diagnosis / Problem: Right TKA Discharge Goals Goal(s): Improve function Activity Recommendations Activity Limitations: as noted below . Instructions / Follow-Up Instructions / Follow-Up ACTIVITY RECOMMENDATIONS: SELF CARE INSTRUCTIONS AFTER TOTAL KNEE REPLACEMENT A. You may need to continue a physical therapy program after discharge from the hospital. There are several options available to you. Your doctor will assist you in selecting the best one for you. 1. An out-patient facility 2 to 3 times a week for therapy or home therapy. 2. Continue working on all exercises taught to you in the hospital. Your goals should be to increase bending of your knee to 90 degrees and beyond and to fully straighten your knee. B. You may progress at your own pace from walking with a walker or crutches to a cane; then to no assistive devices. C. Make walking a part of your daily routine. Be up as much as comfortable with rest periods throughout the day. Rest with leg elevation is very important. Use the ice wrap frequently for the first 3-4 weeks. D. There are no restrictions on activities. 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 E. Wear the long elastic stockings (OSMIN hose) 20 hours a day for 2 weeks after surgery. They can be removed several times a day for laundering and for a bath. F. You may shower, no tub baths until cleared by your doctor. SPECIAL CARE INSTRUCTIONS: VERY IMPORTANT TO READ AND REVIEW A. There are a few signs you need to watch for after you are home. Call [facility] if you notice any of the followin. Increased severe knee pain. Some pain is expected especially when you exercise. 2. Increased swelling in your leg or knee; pain or swelling of the calf muscle in either lower leg. 3. Any fluid drainage from the incision. 4. Shortness of breath or chest pain. B. Please call [facility] at if you have any concerns or questions about your operation or recovery. The doctor or his nurse will return your call promptly. C. You must take antibiotics before dental work, bladder, bowel or other surgery. Your doctor will provide you with a permanent care to carry describing this precaution. IMPORTANT: * REMEMBER TO TAKE ASPIRIN, 81 MG, TWICE DAILY FOR 4 WEEKS UNLESS OTHERWISE DIRECTED. THIS IS YOUR BLOOD THINNER. * HIGH RISK PATIENTS MAY BE PRESCRIBED A STRONGER BLOOD THINNER. THIS WILL BE PROVIDED AT DISCHARGE. * CALL IF INCREASED PAIN, REDNESS, DRAINAGE OR FEVER GREATER THAT 101. * WEAR OSMIN HOSE 20 HOURS PER DAY FOR 2 WEEKS. * YOU MAY HAVE A LARGE BAND-AID LIKE DRESSING (SILVERON). THIS WILL REMAIN ON YOUR INCISION FOR 7 DAYS, THEN CAN BE REMOVED. IF INCISION IS LEAKING THROUGH DRESSING, CALL THE OFFICE . FOLLOW UP VISIT: If appointment is not already scheduled: Please call [facility] to make a follow-up appointment for 2 weeks after your surgery at . Current Hospital Diet Patient's current hospital diet: Regular Diet Discharge Diet Recommended Diet: Regular Diet Procedures Procedures Performed: Right Total Knee Arthroplasty Pending Studies Studies pending at discharge: no Laboratory Results Hemoglobin A1c Test 09/28/16 12:50 Range/Units Estimated Average Glucose 117 mg/dl Hemoglobin A1c 5.7 H 4.5-5.6 % Medical Emergencies . Who to Call and When: Medical Emergencies: If at any time you feel your situation is an emergency, please call 911 immediately. . Non-Emergent Contact Non-Emergency issues call your: Primary Care Provider . "Provider Documentation" section prepared by Rubio Mcmahon. . VTE Core Measure Inpt VTE Proph given/why not?: Other Anticoagulation (asa), T.E.D. Stockings, SCD's [place] Drug Monitoring Program Search Results: patient reviewed within database, no issues identified
--- NOTE | 2016-11-02 08:54 | Progress Note ---
Subjective Date of Service: Nov 02, 2016. Subjective Pt evaluation today including: conversation w/ patient, physical exam, lab review, review of studies, review of inpatient medication list Patient feels well. BP acceptable. No chest pain , no sob. Good appetite. Review of Systems All Other Systems: Reviewed and Negative Medications Acetaminophen (Tylenol Tab) 1,000 mg Q8 PO Last administered on 11/02/16 05:50 ; Admin Dose 1,000 MG; Start 10/31/16 at 22:00; Stop 11/30/16 at 21:59 Amlodipine Besylate (Norvasc Tab) 5 mg QAM PO Last administered on 11/01/16 08: 37; Admin Dose 5 MG; Start 11/01/16 at 09:00; Stop 12/01/16 at 08:59 Aspirin (Ecotrin Tab) 81 mg BID PO Last administered on 11/01/16 20:51; Admin Dose 81 MG; Start 10/31/16 at 21:00; Stop 11/30/16 at 20:59 Benazepril HCl (Lotensin Tab) 10 mg QAM PO Last administered on 11/01/16 08:37 ; Admin Dose 10 MG; Start 11/01/16 at 09:00; Stop 12/01/16 at 08:59 Bisacodyl (Dulcolax Supp) [address]; Start 10/31/16 at 15:00; Stop at 14:59 Celecoxib (CeleBREX CAP) 200 mg BID PO Last administered on 11/01/16 20:52; Admin Dose 200 MG; Start 10/31/16 at 21:00; Stop 11/30/16 at 20:59 Diphenhydramine HCl (Benadryl Cap) 25 mg Q8H PRN PO; Start 10/31/16 at 15:00; Stop 11/30/16 at 14:59 Docusate Sodium (coLACE CAP) 100 mg BID PO Last administered on 11/01/16 20:51 ; Admin Dose 100 MG; Start 10/31/16 at 21:00; Stop 11/30/16 at 20:59 Gabapentin (Neurontin Cap) 300 mg QAM PO Last administered on 11/01/16 08:36; Admin Dose 300 MG; Start 11/01/16 at 09:00; Stop 12/01/16 at 08:59 Magnesium Hydroxide (Milk Of Magnesia Susp) 30 ml Q6H PRN PO; Start 10/31/16 at 15:00; Stop 11/30/16 at 14:59 Morphine Sulfate (MoRPHine SULFATE INJ) 2 mg Q2H PRN IV; Start 10/31/16 at 15: 00; Stop 11/14/16 at 14:59 Morphine Sulfate (MoRPHine SULFATE INJ) 4 mg Q2H PRN IV; Start 10/31/16 at 15: 15; Stop 11/14/16 at 15:14 Multivitamins (Multivitamin Tab) 1 tab QAM PO Last administered on 11/01/16 08: 36; Admin Dose 1 TAB; Start 11/01/16 at 09:00; Stop 12/01/16 at 08:59 Ondansetron HCl (Zofran Inj) 4 mg Q6H PRN IV; Start 10/31/16 at 15:00; Stop at 14:59 Oxycodone HCl (Oxycontin Tab) 10 mg Q12 PO Last administered on 11/01/16 20:50 ; Admin Dose 10 MG; Start 10/31/16 at 21:00; Stop 11/14/16 at 20:59 Oxycodone HCl (Roxicodone Immediate Rel Tab) 1 TABLET FOR PAIN RATING... Q4H PRN PO; Start 10/31/16 at 15:00; Stop 11/14/16 at 14:59 Pantoprazole Sodium (Protonix Tab) 40 mg QAM PO Last administered on 11/01/16 08:39; Admin Dose 40 MG; Start 11/01/16 at 09:00; Stop 12/01/16 at 08:59 Propranolol HCl (Inderal La Cap) 120 mg DAILY PO Last administered on 11/01/16 08:38; Admin Dose 120 MG; Start 11/01/16 at 09:00; Stop 12/01/16 at 08:59 Sodium Biphosphate/ Sodium Phosphate (Fleet Enema) [address]; Start 10/31/16 at 15:00; Stop 11/30/16 at 14:59 Tramadol HCl (Ultram Tab) 1 tablet for pain rating... Q4H PRN PO; Start at 15:00; Stop 11/30/16 at 14:59 Zolpidem Tartrate (Ambien Tab) 5 mg HSZ PRN PO; Start 10/31/16 at 15:00; Stop 11/30/16 at 14:59 Objective Vital Signs Date Time Temp Pulse Resp B/P Pulse Ox O2 Delivery O2 Flow Rate FiO2 11/02/16 08:43 Room Air 11/02/16 06:56 36.5 56 17 149/97 97 Room Air 11/01/16 23:08 36.5 51 16 149/91 95 Room Air 11/01/16 19:50 Room Air 11/01/16 15:30 36.9 59 16 128/83 97 Room Air 11/01/16 12:10 36.8 72 22 120/72 98 Room Air Physical Exam Comments: nad, aox3, anicteric s1 s2 rrr, no murmur sappreciated ctab no w/r/r abd soft nt/nd +BS no LE edema R knee dressing c/d/i Laboratory Results Last 24 Hours Test 11/02/16 06:12 White Blood Count 9.62 K/uL Red Blood Count 4.28 M/uL Hemoglobin 12.8 g/dL Hematocrit 36.7 % Mean Corpuscular Volume 85.7 fL Mean Corpuscular Hemoglobin 29.9 pg Mean Corpuscular Hemoglobin Concent 34.9 g/dl RDW Standard Deviation 42.5 fL RDW Coefficient of Variation 13.7 % Platelet Count 160 K/uL Mean Platelet Volume 11.3 fL Sodium Level 143 mmol/L Potassium Level 4.5 mmol/L Chloride Level 109 mmol/L Carbon Dioxide Level 29 mmol/L Anion Gap 5.0 mmol/L Blood Urea Nitrogen 20 mg/dl Creatinine 1.00 mg/dl Est Creatinine Clear Calc Drug Dose 80.0 ml/min Estimated GFR () 91.8 Estimated GFR (Non- 79.2 BUN/Creatinine Ratio 20.4 Random Glucose 105 mg/dl Calcium Level 8.7 mg/dl Assessment and Plan 1. s/p R TKA - POD#2 - pain regimen adequate - PT/OT at home 2. HTN - acceptable on amlodipine 3. Essential tremors - cont propranolol 4. Hyperglycemia - non-diabetic - monitor - will need screening for DM as outpatient 5.ABnormal A1C - active and previously went to the gym regularly - A1C 5.7, follow-up with PCP - no further intervention at this time 6. Dispo: per primary team
[2016-11-02] MEDS: ASPIRIN 81 MG ECTAB PO SCH (08:57)
[2016-11-02] MEDS: PANTOprazole SOD 40 MG TAB PO SCH (08:58)
[2016-11-02] MEDS: BENAZEPRIL HCL 10 MG TAB PO SCH (08:58)
[2016-11-02] MEDS: GABAPENTIN 300 MG CAP PO SCH (08:58)
[2016-11-02] MEDS: MULTIVITAMIN TAB PO SCH (08:58)
[2016-11-02] MEDS: AMLODIPINE BESYLATE 5 MG TAB PO SCH (08:58)
[2016-11-02] MEDS: DOCUSATE SODIUM 100 MG CAP PO SCH (08:58)
[2016-11-02] MEDS: CeleBREX 200 MG CAP PO SCH (08:58)
[2016-11-02] MEDS: PROPRANOLOL HCL 60 MG LA CAP PO SCH (08:58)
[2016-11-02] MEDS: OXYCODONE HCL 10 MG TABCR (OXYCONTIN) PO SCH (09:01)
[2016-11-02 09:41] VITALS: BP 137/84
[2016-11-02 09:53] VITALS: BP 149/97; PULSE 56; TEMP 36.5; O2SAT 97
--- NOTE | 2016-11-15 16:55 | DISCHARGE SUMMARY ---
HISTORY OF PRESENT ILLNESS: A 66-year-old male patient of Dr. Dominique'alyssa complaining of chronic right knee pain, long-standing progressively, getting worse. The patient was diagnosed with end-stage osteoarthritis and elected to proceed with a right total knee arthroplasty. PAST MEDICAL HISTORY: Hypertension and back problems. POSTOPERATIVE COURSE: The patient underwent a right total knee arthroplasty on 10/31/2016. He was followed closely with medical consultation, physical therapy, pain control and DVT prophylaxis in the form of aspirin. The patient did well postoperatively and was discharged home on postoperative day #2. PHYSICAL EXAMINATION: On discharge, right knee Silverlon dressing was clean, dry and intact. There was no redness or drainage. He had no calf tenderness. Negative Homans sign. Neurologically and neurovascularly he was intact in his right lower extremity. DIAGNOSES: Status post right total knee arthroplasty with a history of hypertension and back problems. PLAN: The patient was discharged home with home health services. He was discharged on his preadmission medications. He will continue his aspirin twice daily for DVT prophylaxis. Pain medications were also added to his regimen. The patient will follow up as an outpatient as scheduled.
== END 2016-11-02 10:31 | disposition home health service (06) | DRG 470 ==
LOC: ENRESERVDT → ENRESERVTM → C.ACU 10:45 → C.3E 11:30
PROVIDERS: ADMIT Orthopaedic Surgery Sports Medicine; ATTEND Orthopaedic Surgery Sports Medicine
PROC: 0SRC0J9 Replacement of Right Knee Joint with Synthetic Substitute, Cemented, Open Approach (ICD-10-PCS; principal; 2016-10-31 13:00)
DX: M17.11 Unilateral primary osteoarthritis, right knee (principal); I10 Essential (primary) hypertension; G25.0 Essential tremor; R73.9 Hyperglycemia, unspecified; Z79.899 Other long term (current) drug therapy